=== PATIENT | female | born 1970 | race Caucasian/White ===

== ENCOUNTER → 2020-08-18 | Outpatient (CLI) | payer OTHER ==
[~2020-08-18] MED LIST: DRISDOL50000 UNIT PO; IMITREX100 MG PO; KLONOPIN TAB 00.5 MG PO; LEVAQUIN750 MG PO; LEXAPRO20 MG PO; NORCO 7.5-3251 EACH PO; PROAIR HFA8.5 GM INH; PROTONIX40 MG PO; VITAMIN B-1000 MCG/M SC
== END ==
LOC: HEART 5 15:08
DX: J41.0 Simple chronic bronchitis (principal); F17.210 Nicotine dependence, cigarettes, uncomplicated
CPT/HCPCS: 94010

== ENCOUNTER → 2021-06-14 | Outpatient (CLI) | payer OTHER | LOC: KOH-I 14:16 | DX: S92.211D Displaced fracture of cuboid bone of right foot, subsequent encounter for fracture with routine healing (principal) | CPT/HCPCS: 73630 ==

== ENCOUNTER → 2021-06-27 | Outpatient (CLI) | payer OTHER | LOC: EXRD 08:21 → MRI 08:21 → EXRD 08:30 → MRI 09:00 | DX: S93.401A Sprain of unspecified ligament of right ankle, initial encounter (principal); Z78.0 Asymptomatic menopausal state; S86.811A Strain of other muscle(s) and tendon(s) at lower leg level, right leg, initial encounter; R60.0 Localized edema; M85.89 Other specified disorders of bone density and structure, multiple sites | CPT/HCPCS: 73721; 77080 ==